=== PATIENT | female | born 1975 | race Caucasian/White ===

== ENCOUNTER → 2017-04-13 | Day surgery (SDC) | payer OTHER ==
[~2017-04-13] VITALS: Ht 165.1 cm; Wt 80.4 kg
[~2017-04-13] MED LIST: ACETAMINOPHEN325 MG PO; DERMOPLAST SPRA56 GM TOP; NORCO 5-325 TA1 EACH PO; PERCOCET 5-3251 EACH PO; PRENATAL 1+1)(P1 TAB PO; TUMS200 MG PO
--- NOTE | ~2017-04-13 | OR ---
PATIENT'S NAME: [facility] AGE: 41 Y [address] ROOM: [place] [id number] [place] [facility] [place]: 04/13/2017 OR/Procedure Report DISCHARGE DATE: FAMILY PHYSICIAN: CAT BRAVO MD ATTENDING PHYSICIAN: DAJA GREEN SURGEON: Daja Green MD LPN: DATE OF PROCEDURE: 04/13/2017 PREOPERATIVE DIAGNOSIS: Incarcerated ventral hernia. POSTOPERATIVE DIAGNOSIS: Incarcerated ventral hernia. PROCEDURE: Ventral hernia repair with mesh. ANESTHESIA: General endotracheal anesthesia. INDICATIONS FOR PROCEDURE: This is a 41-year-old female, who presents with an incarcerated ventral hernia. The risks and benefits of the surgery were discussed. Informed consent was obtained. DESCRIPTION OF PROCEDURE: The patient was placed in the supine position. The abdomen was prepped and draped in the usual sterile fashion. A supraumbilical midline incision was made in the subcutaneous tissue divided with electrocautery. The subcutaneous tissue was divided to the fascia and the hernia sac was divided from surrounding subcutaneous tissue with electrocautery. The hernia sac was opened and the hernia sac was then divided from the fascia with electrocautery. It was submitted as a specimen. The hernia contents were noted to be omental fat and were reduced. The actual hernia defect was approximately 1 cm in size. A piece of Ventralex ST hernia patch mesh was selected measuring 4.6 cm. It was placed in the hernia defect and sutured to the muscle fascia with 0 Prolene suture. The fascia was closed over the mesh with interrupted 0 Prolene suture. The wound was irrigated and aspirated. Hemostasis was confirmed. The fascia, subcutaneous tissue, and skin were injected with 0.25% Marcaine mixed with Exparel. The skin was closed with deep dermal 4-0 PDS, followed by subcuticular 4-0 Monocryl, and sterile dressings were applied. The patient tolerated the procedure well and was taken to the recovery room in a stable condition. DAJA GREEN MD MRS/modl PATIENT'S NAME: SHYANNE VARELAY [facility] AGE: 41 Y [address] ROOM: [place] [id number] [place] [facility] [place]: 04/13/2017 OR/Procedure Report DISCHARGE DATE: FAMILY PHYSICIAN: CAT BRAVO MD ATTENDING PHYSICIAN: DAJA GREEN /[id number] d: 04/13/17 1426 t: 05/10/17 1110, OPERATIVE SUMMARY
== END | disposition disaster alternative care site (69) ==
LOC: GPOC 04-06 10:00 → GSDC 06:04
PROC: 0WUF0JZ Supplement Abdominal Wall with Synthetic Substitute, Open Approach (ICD-10-PCS; principal; 2017-04-13)
DX: K43.6 Other and unspecified ventral hernia with obstruction, without gangrene (principal); Z87.891 Personal history of nicotine dependence; Z98.890 Other specified postprocedural states
CPT/HCPCS: C1781; C9290; J0690; J2001; J7120